=== PATIENT | female | born 1935 | race Caucasian/White ===

== ENCOUNTER → 2017-03-19 | Outpatient (CLI) | payer MEDICARE, BC ==
[~2017-03-19] MED LIST: ASPIR 8181 M1 PO; ASPIRIN81 M1 PO; ASPIRIN81 M2 PO; Aspirin PO; Diabeta,Micronase PO; GLUCOPHAGE1000 MG PO; GLUCOPHAGE500 MG PO; LISINOPRIL5 MG PO; METFORMIN HCL1000 MG PO; METOPROLOL SUCC25 MG PO; METOPROLOL TART25 MG PO; SYNTHROID100 MCG PO; SYNTHROID75 MCG PO; SYNTHROID88 MCG PO; ZESTRIL,PRINIVI10 MG PO
== END | disposition home or self-care (01) ==
LOC: CDC 12:00
DX: I25.10 Atherosclerotic heart disease of native coronary artery without angina pectoris (principal); I44.0 Atrioventricular block, first degree
CPT/HCPCS: 93000

== ENCOUNTER 2017-04-09 21:19 | Inpatient (IN) | payer OTHER, BC ==
[~2017-04-09] VITALS: Ht 149.9 cm; Wt 65.0 kg
[2017-04-10] VITALS (11 sets, daily range): BP systolic 139–170; BP diastolic 59–78
[2017-04-10] MEDS ORDERED: TRADJENTA5 MG PO (05:52)
[2017-04-10] MEDS ORDERED: OMEPRAZOLE20 MG PO (05:53)
[2017-04-10 06:39] LABS: POINT-OF-CARE METER ID UU14174212; POINT-OF-CARE USER ID AHSRSCSLC11
[2017-04-10 09:33] LABS: POINT-OF-CARE METER ID UU13113675
[2017-04-10] MEDS ORDERED: HYDROCODON-ACE1 EAC7 PO (11:15)
[2017-04-10 11:30] LABS: POINT-OF-CARE METER ID UU14314082
[2017-04-10 12:14] LABS: METH RESISTANT S AUREUS PCR NEGATIVE (NEGATIVE)
[2017-04-10 12:16] LABS: PROBE CHECK PASS; SPECIMEN PROCESSING CONTROL PASS
[2017-04-10 18:16] LABS: POINT-OF-CARE METER ID UU14314082
[2017-04-10 21:46] LABS: POINT-OF-CARE METER ID UU14314082
[2017-04-11] VITALS: BP 154/68
[2017-04-11 04:00] VITALS: BP 129/63
[2017-04-11 06:00] VITALS: BP 0/0; BP 134/63
[2017-04-11 08:00] VITALS: BP 132/64
[2017-04-11 08:11] LABS: POINT-OF-CARE METER ID UU14314082
[2017-04-11 10:00] VITALS: BP 140/66
== END 2017-04-11 10:32 | disposition home or self-care (01) | DRG 27 ==
LOC: CANRESERV 21:19 → ENRESERV 21:19 → 2SOUTH 04-10 05:15 → 4WEST 04-10 05:15 → ENRESERV 04-10 07:14 → CANRESERV 04-10 07:14 → 2SOUTH 04-10 08:18 → ENRESERV 04-10 09:22 → 4WEST 04-10 10:46 → ENRESERV 04-10 21:24 → CANRESERV 04-10 23:06 → 4WEST 04-11 10:32
PROVIDERS: Surgery
DX: I65.22 Occlusion and stenosis of left carotid artery (principal); Z87.891 Personal history of nicotine dependence; K21.9 Gastro-esophageal reflux disease without esophagitis; E78.00 Pure hypercholesterolemia, unspecified; E11.9 Type 2 diabetes mellitus without complications; Z83.3 Family history of diabetes mellitus; Z79.82 Long term (current) use of aspirin; Z23 Encounter for immunization; R13.10 Dysphagia, unspecified
CPT/HCPCS: 82948; 87641; 90686; 93005; C1768; J0690; J1170; J1644; J1815; J2250; J2405; J2720; J2795; J3010; J7120